=== PATIENT | female | born 1990 | race Caucasian/White ===

== ENCOUNTER 2025-04-09 09:56 | Emergency (ER) | payer BC ==
[~2025-04-09] VITALS: Ht 149.9 cm; Wt 61.5 kg
[2025-04-09 10:10] VITALS: TEMP 98
--- NOTE | 2025-04-09 11:05 | RADIOLOGY REPORT ---
CLINICAL INFORMATION: ANKLE PAIN. TECHNIQUE: 3 views of the left ankle were obtained. COMPARISON: None FINDINGS: Acute, obliquely oriented fracture of the distal fibula extending to the level of the talar dome without significant displacement or angulation. Talar dome is smooth. No widening at the ankle mortise. No significant arthropathy. Mild soft tissue swelling, most prominent laterally. IMPRESSION: Acute fracture of the distal fibula.
--- NOTE | 2025-04-09 11:19 | RADIOLOGY REPORT ---
CLINICAL INFORMATION: Pain. TECHNIQUE: 2 views of the left knee were obtained. COMPARISON: None FINDINGS: No acute fracture or dislocation. No significant arthropathy. No focal soft tissue swelling. No significant joint effusion. IMPRESSION: No evidence of acute bony abnormality.
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
[2025-04-09] MEDS ORDERED: HYDR-3965 PO (11:42)
[2025-04-09 11:59] VITALS: BP 126/77; PULSE 67; RESP 18; O2SAT 98
== END 2025-04-09 12:01 | disposition home or self-care (01) ==
LOC: ER 09:57
DX: S82.402A Unspecified fracture of shaft of left fibula, initial encounter for closed fracture (principal); Z88.1 Allergy status to other antibiotic agents; Z88.2 Allergy status to sulfonamides; X58.XXXA Exposure to other specified factors, initial encounter; Y93.89 Activity, other specified; Y92.89 Other specified places as the place of occurrence of the external cause; Y99.8 Other external cause status
CPT/HCPCS: 73560; 73610; 99284; L4360